=== PATIENT | female | born 2000 | race Caucasian/White ===

== ENCOUNTER → 2024-03-17 | Emergency (ER) | payer OTHER ==
[~2024-03-17] VITALS: Ht 116.8 cm; Wt 69.9 kg
[~2024-03-17] MED LIST: KETOROLAC TROMETHAMINE INJ 30 MG/ML VIAL ONE; NAPR-1009 PO; ONDA4TAB5 PO; ONDANSETRON HCL/PF 4 MG/2 ML VIAL ONE
[2024-03-17 05:56] LABS: CALCIUM, SERUM 9.1 mg/dL (8.5-10.1); CREATININE 0.9 mg/dL (0.6-1.3); POTASSIUM 3.8 mmol/L (3.5-5.1)
[2024-03-17 06:02] LABS: ALBUMIN 3.8 g/dL (3.4-5.0); BILIRUBIN,TOTAL 0.3 mg/dL (0.2-1.0); TOTAL PROTEIN, SERUM 8.2 g/dL (6.4-8.2)
[2024-03-17] MEDS: ONDANSETRON HCL/PF - ER 4 MG/2 ML VIAL IV ONE (06:07)
[2024-03-17] MEDS: IV NS 0.9% 1,000 ML IV ONE (06:07)
[2024-03-17] MEDS: KETOROLAC TROMETHAMINE INJ 30 MG/ML VIAL IV ONE (06:07)
[2024-03-17 07:22] LABS: BASOPHILS % (AUTO) 0.3 % (0.0-2.0); EOSINOPHILS % (AUTO) 0.2 % (0.0-6.0); HEMATOCRIT 37 % (33-45); HEMOGLOBIN 12.3 g/dL (11.5-14.8); LYMPHOCYTES # (AUTO) 1.3 K/uL (0.8-4.8); LYMPHOCYTES % (AUTO) 12.6 % (20.0-44.0); MEAN CORPUSCULAR HEMOGLOBIN 30 PG (26.0-33.0); MEAN CORPUSCULAR HGB CONC 33 g/dl (31.0-36.0); MEAN CORPUSCULAR VOLUME 89 fL (82-100); MONOCYTES # (AUTO) 0.3 K/uL (0.1-1.30); MONOCYTES % (AUTO) 2.8 % (2.0-12.0); NEUTROPHILS # (AUTO) 8.3 K/uL (1.8-8.9); NEUTROPHILS % (AUTO) 84.1 % (43.0-81.0); PLATELET COUNT (AUTO) 292 K/uL (150-450); RED BLOOD CELL COUNT(AUTO) 4.14 MIL/uL (4.0-5.2); RED CELL DISTRIBUTION WIDTH 13.1 % (11.5-15.0); WHITE BLOOD COUNT (AUTO) 9.9 K/uL (4.3-11.0)
[2024-03-17 07:47] VITALS: BP 110/75; TEMP 98; O2SAT 98
== END | disposition home or self-care (01) ==
LOC: ER 03:49
DX: R51.9 Headache, unspecified (principal); R11.2 Nausea with vomiting, unspecified; G40.909 Epilepsy, unspecified, not intractable, without status epilepticus
CPT/HCPCS: 99285; 96374; 70450; 96361; 96375; 85025; 36415; 80053; J1885; J2405 ×2; J7030